=== PATIENT | male | born 1995 | race Caucasian/White ===

== ENCOUNTER 2024-08-14 22:23 | Emergency (ER) | payer SELFPAY ==
[~2024-08-14] VITALS: Ht 170.2 cm; Wt 78.0 kg
[2024-08-14] MEDS: SODIUM CHLORIDE 0.9% 1,000 ML IV ONE (02:55)
[2024-08-14 22:57] VITALS: BP 133/85; PULSE 102; RESP 18; TEMP 98.2; O2SAT 100
[2024-08-14 23:34] LABS: EOSINOPHILS % 0.6 % (0.0-5.0); HEMATOCRIT. 41.3 % (42.0-52.0); HEMOGLOBIN. 14.6 g/dL (14.0-18.0); MEAN CORPUSCULAR HEMOGLOBIN 35.3 pg (28.0-32.0); MEAN CORPUSCULAR HGB CONC 35.4 g/dL (31.0-37.0); MEAN CORPUSCULAR VOLUME 99.9 fL (80.0-94.0); MEAN PLATELET VOLUME 7.5 fl (7.4-10.4); MONOCYTES % 4.6 % (2.0-8.0); NEUTROPHILS % 58.8 % (40.0-76.0); PLATELET 311 x1000/uL (130-400); RED BLOOD CELL COUNT 4.14 mill/uL (4.7-6.1); RED CELL DISTRIBUTION WIDTH 15.1 % (11.6-14.6); WHITE BLOOD COUNT 8.3 x1000/uL (4.5-11.0)
[2024-08-14 23:44] LABS: CARBON DIOXIDE 22 mEq/L (21-32); CHLORIDE 100 mEq/L (98-107); POTASSIUM 3.4 mEq/L (3.5-5.1); SODIUM 133 mEq/L (136-145)
[2024-08-14 23:50] LABS: CREATININE 1.2 mg/dL (0.6-1.3); GLUCOSE 256 mg/dL (70-105); UREA NITROGEN BLOOD 26 mg/dL (9-23)
[2024-08-14 23:52] LABS: PHOSPHORUS 3.5 mg/dL (2.5-4.9)
[2024-08-14 23:53] LABS: ETHANOL BLOOD < 10 mg/dL (<10); TROPONIN I HIGH SENSITIVITY < 4 ng/L (3.0-53)
== END 2024-08-15 04:55 | disposition home or self-care (01) ==
LOC: ER 22:29
DX: R55 Syncope and collapse (principal); E11.9 Type 2 diabetes mellitus without complications; F16.90 Hallucinogen use, unspecified, uncomplicated; Z00.00 Encounter for general adult medical examination without abnormal findings; Z88.2 Allergy status to sulfonamides
CPT/HCPCS: 80048; 80320; 83880; 83735; 84100; 85025; 84484; 36415; 71045; 70450; 93005; 96360; 99285; J7030; G0480

== ENCOUNTER 2025-07-06 09:29 | Emergency (ER) | payer MEDICAID ==
[~2025-07-06] VITALS: Ht 172.7 cm; Wt 73.0 kg
[2025-07-06 09:30] VITALS: O2SAT 100
[2025-07-06] MEDS: EPINEPHRINE 1:1000 1 MG/ML AMP IM ONE (10:08)
[2025-07-06] MEDS: DEXAMETHASONE 10 MG/ML VIAL IV ONE (10:09)
[2025-07-06] MEDS: FAMOTIDINE 20MG/2ML VIAL IV ONE (10:09)
[2025-07-06] MEDS: DIPHENHYDRAMINE 50MG/ML VIAL IV ONE (10:09)
[2025-07-06] MEDS: LACTATED RINGERS 1,000 ML IV SCH (10:09)
[2025-07-06] MEDS: ONDANSETRON HCL 4MG/2ML INJ IV ONE (10:09)
[2025-07-06 14:16] VITALS: BP 121/54; TEMP 36.7; O2SAT 98
[2025-07-06 14:19] VITALS: PULSE 88; RESP 18
== END 2025-07-06 14:35 | disposition home or self-care (01) ==
LOC: ER 09:29
DX: T78.2XXA Anaphylactic shock, unspecified, initial encounter (principal); E11.9 Type 2 diabetes mellitus without complications; Z87.892 Personal history of anaphylaxis; Z88.2 Allergy status to sulfonamides
CPT/HCPCS: 99291; 96374; 96375; 96361; 93005; 96372; J1100; J1200; J3490; J1308; J2405